=== PATIENT | female | born 1945 | race Caucasian/White ===

== ENCOUNTER 2021-02-11 08:29 | Outpatient (REF) | payer MEDICARE, SELFPAY ==
--- NOTE | 2021-02-11 16:20 | MHC.AU.P13 ---
Adult Audiological Evaluation Date of Visit: 02/11/21 Reason for Appointment: Audiological evaluation to monitor the status of Ms. Marie's hearing loss. She has a known bilateral sensorineural hearing loss and feels her hearing may be getting worse. She denies any changes to her medical history. [place] [facility] [place] Moderate sloping to profound sensorineural hearing loss bilaterally. Medical History: Medical History: Lymphedema Hearing Instrument History- Right Ear: Customs Appraiser: Phonak Model: Dream Dinners Q90-P BTE Serial Number: [id number] Battery Size: 13 Repair Warranty: 06/08/2018 Loss and Damage Warranty: 06/08/2018 Dispensed By: [facility] Date of Fittin03/19/2015 Hearing Instrument History- Left Ear: Customs Appraiser: Phonak Model: Dream Dinners Q90-P BTE Serial Number: [id number] Battery Size: 13 Warranty: 06/08/2018 Loss and Damage Warranty: 06/08/2018 Dispensed By: [facility] Date of Fittin03/19/2015 Otoscopy: Right Ear: Unremarkable Left Ear: Unremarkable Hearing Evaluation: Transducer(s) Used: Insert Earphones, Bone Conduction Method: Conventional Audiometry Stimuli Used: Pure Tones Right Ear: Description of Hearing: Moderate sloping to profound sensorineural hearing loss from 250-8000 Hz. Left Ear: Description of Hearing: Moderate sloping to profound sensorineural hearing loss from 250-8000 Hz. Speech Recognition Threshold (SRT): Method Used: Recorded Lists Stimuli Used: Spondee Words Right Ear: 50 dBHL Left Ear: 50 dBHL Word Discrimination: Method: Recorded Lists Word Lists Used: NU-6 Right Ear: 84% at 90 dBHL Left Ear: 56% at 90 dBHL, 68% at 85 dBHL Comparison: Compared to the most recent evaluation: Hearing is stable. Word discrimination scores have decreased in the left ear. Recommendations: Audiological re-evaluation in one year. Hearing aid maintenance performed today. Diagnosis: Primary Diagnosis: H90.3 Bilateral Sensorineural Hearing Loss Services Performed: Comprehensive Audiological Evaluation (CPT 18933) Signature: Provider: Michael Franz, CCC-A
== END 2021-02-11 08:30 | disposition home or self-care (01) ==
LOC: HO.SH 08:29
PROVIDERS: Visit Provider Internal Medicine
DX: H90.3 Sensorineural hearing loss, bilateral (principal)
CPT/HCPCS: 92557

== ENCOUNTER 2021-03-19 13:37 | Outpatient (REF) | payer SELFPAY | END 2021-03-19 13:38 | disposition home or self-care (01) | LOC: HO.HAP 13:37 | PROVIDERS: Visit Provider Internal Medicine | DX: Z13.89 Encounter for screening for other disorder (principal) ==

== ENCOUNTER 2021-09-26 09:07 | Outpatient (REF) | payer SELFPAY ==
--- NOTE | 2021-09-26 13:30 | MHC.AU.HFU ---
Hearing Instrument Follow-Up- Binaural Date of Visit: 09/26/21 Right Ear: Core Sucker: Phonak Model: Bolero Q90-P BTE Serial Number: [id number] Repair Warranty: 06/08/2018 Loss and Damage Warranty: 06/08/2018 Battery Size: 13 Tubing: Size 1 slim tube Type of Mold: Slim tip Dispensed By: [facility] Date of Fittin03/19/2015 Left Ear: Core Sucker: Phonak Model: Bolero Q90-P BTE Serial Number: [id number] Repair Warranty: 06/08/2018 Loss and Damage Warranty: 06/08/2018 Battery Size: 13 Tubing: Size 1 slim tip Dispensed By: [facility] Date of Fittin03/19/2015 Follow-Up Summary: Patient's right slim tip broke. For the time being, put a small power dome on the right hearing aid so she can still use it. Will order a copy of the right slim tip from [employer]. Recommendations: Recommendations: Patient will be contacted when materials have arrived. Diagnosis Code(s): Primary Diagnosis: H90.3 Bilateral Sensorineural Hearing Loss Signature: Provider: Michael Upton, BENIGNO-A
== END 2021-09-26 09:08 | disposition home or self-care (01) ==
LOC: HO.HAP 09:07
PROVIDERS: Visit Provider Internal Medicine
DX: Z13.89 Encounter for screening for other disorder (principal)

== ENCOUNTER 2021-10-10 10:38 | Outpatient (REF) | payer SELFPAY | END 2021-10-10 10:39 | disposition home or self-care (01) | LOC: HO.HAP 10:38 | PROVIDERS: Visit Provider Internal Medicine | DX: Z46.1 Encounter for fitting and adjustment of hearing aid (principal); H90.3 Sensorineural hearing loss, bilateral | CPT/HCPCS: V5264 ==

== ENCOUNTER 2022-03-03 10:26 | Outpatient (REF) | payer MEDICARE, OTHER, SELFPAY ==
--- NOTE | 2022-03-04 11:50 | MHC.AU.HAS ---
Hearing Aid Evaluation Date of Visit: 03/03/22 Historical Information: Description of Hearing: Bilateral moderate to profound sensorineural hearing loss. Current personal amplification information, if applicable: Binaural 2014 Phonak Bolero Q 90-P BTE with slim tubes and custom tips Summary: Patient recently lost her right hearing aid and wants to purchase new aids. Hearing Aid Prescription: Based on the individual?s shared listening needs, communication environments, dexterity, desire for connectivity, and personal preferences, the following prescription for amplification has been made: Right ear: Sample Puller: Phonak Model: Bolero Q90-P BTE Battery Size: 13 Color: Sand Beige Distillation Operator: #1 Power Type of Mold: Phonak canal lock c-shell Left ear: Left ear prescription to be same as Right Hearing Aid above: Sample Puller: Phonak Model: Bolero Q90-P BTE Battery Size: 13 Color: Sand Beige Distillation Operator: #1 Power Type of Mold: Phonak canal lock c-shell Plan of Care: Patient wishes to purchase hearing aids as prescribed Action Taken/Action Needed:Earmold Impressions Taken, Medical Clearance to be requested from PCP/ENT, Hearing Instrument Fitting to be scheduled when materials arrive Comments: DID NOT TAKE THE $350.00 DEPOSIT TODAY PATIENT WILL BE CHECKING IF SHE IS ABLE TO GO THROUGH HER [employer]. Patient called back after the appointment. She does not want to go to insurance providers for hearing aids and wants the aids we discussed today ordered. SHE WILL PAY 1/2 DOWN AT [facility] AND THEN SET UP PAYMENT PLAN FOR BALANCE. Schedule [facility] when aids in. Primary Diagnosis: H90.3 Bilateral Sensorineural Hearing Loss Signature:Provider: Michael Prajapati, [facility]
--- NOTE | 2022-03-04 11:52 | MHC.AU.MED ---
Medical Clearance for Hearing Instrumentation Date: 03/04/22 Patient Name: Carlitos Marie Date of : 1945 Primary Care Provider: Referring Provider: Prince Interiano MD We have seen your patient on 03/03/22 and have determined that they are a candidate for amplification (See accompanying report). Specifically, they would benefit from: Hearing aid use in both ears There is a statute that addresses Medical Evaluation Requirements prior to fitting a patient with a hearing aid. According to [place] statute 265 CMR:6.03(1), (a) General. Except as provided in 265 CMR 6.03(1)(b), a speech and hearing clinic director shall not sell a hearing aid unless the prospective user has presented to the speech and hearing clinic director a written statement signed by a licensed physician that states that the patient's hearing loss has been medically evaluated and the patient may be considered a candidate for a hearing aid. The medical evaluation must have taken place within the preceding six months. Please note: Due to the [place] Statute referenced above, we cannot accept a signature other than that of a licensed physician. RACECAR DRIVER and PA signatures cannot be accepted. I am in agreement with the above recommendation. There is no medical contraindication for hearing instrumentation. Physician Signature Date Physician Name (Printed)
--- NOTE | 2022-03-04 13:11 | MHC.AU.AHA ---
Adult Audiological Evaluation Date of Visit: 03/03/22 Balance Bridge Inspector Used: Not Applicable Reason for Appointment: Audiologic re-evaluation to determine change in hearing ability. Carlitos reports she recently lost her right hearing aid and needs replacement(s). Previous Hearing Test Results: 02/11/2021 [facility] Bilateral moderate to profound sensorineural hearing loss. Medical History: Medical History: High Blood Pressure, Lymphedema Medication List: Lisinopril, Vitamins B12 and D, Culturelle Hearing Instrument History- Right Ear: Velvet Steamer: Phonak Model: [email or web address] Q90-P BTE LOST Serial Number: [id number] Battery Size: 13 Repair Warranty: 06/08/2018 Loss and Damage Warranty: 06/08/2018 Dispensed By: [facility] Date of Fittin03/19/2015 Hearing Instrument History- Left Ear: Velvet Steamer: Phonak Model: [email or web address] Q90-P BTE Serial Number: [id number] Battery Size: 13 Warranty: 06/08/2018 Loss and Damage Warranty: 06/08/2018 Dispensed By: [facility] Date of Fittin03/19/2015 Otoscopy: Right Ear: Unremarkable Left Ear: Unremarkable Tympanometry: Not performed at today's visit as previous results have indicated normal middle ear function bilaterally. Hearing Evaluation: Transducer(s) Used: Insert Earphones Bone Conduction Method: Conventional Audiometry Stimuli Used: Pure Tones Right Ear: Description of Hearing: Moderate to moderately-severe sensorineural hearing loss 250-2000 Hz, dropping to a profound high frequency sensorineural hearing loss. Left Ear: Description of Hearing: Moderately-severe sensorineural hearing loss 250-1000 Hz, dropping to a profound high frequency sensorineural hearing loss. Speech Recognition Threshold (SRT): Method Used: Monitored Live Voice Stimuli Used: Spondee Words Right Ear: 50 dB HL Left Ear: 55 dB HL Word Discrimination: Method: Recorded Lists Word Lists Used: NU-6 Right Ear: 76% at 90 dB HL Left Ear: 80% at 90 dB HL Most Comfortable Level (MCL): Right Ear: 90 dB HL Left Ear: 90 dB HL Comparison: Compared to the most recent evaluation: Hearing is stable. Recommendations: - Trial with new binaural amplification is recommended. Carlitos's current hearing aid model is no longer manufactured, so obtaining one new hearing aid would not be compatible with the current aid. New binaural hearing aids are advised. - Medical clearance from a physician is required before fitting. - Hearing Aid Fitting will be scheduled when all materials arrive. - Left hearing aid maintenance performed today and reprogrammed with updated test results. Right loaner provided until new hearing aids are fit. - Audiological re-evaluation in one year. Will send a reminder card. Diagnosis: Primary Diagnosis: H90.3 Bilateral Sensorineural Hearing Loss Services Performed: Comprehensive Audiological Evaluation (CPT 13073) Signature: Provider: iMchael Prajapati, CCC-A
== END 2022-03-03 10:27 | disposition home or self-care (01) ==
LOC: HO.SH 10:26
PROVIDERS: Visit Provider Internal Medicine
DX: Z01.118 Encounter for examination of ears and hearing with other abnormal findings (principal); H90.3 Sensorineural hearing loss, bilateral
CPT/HCPCS: 92557

== ENCOUNTER 2022-03-23 09:20 | Outpatient (REF) | payer SELFPAY | END 2022-03-23 09:21 | disposition home or self-care (01) | LOC: HO.HAP 09:20 | PROVIDERS: Visit Provider Internal Medicine | DX: Z46.1 Encounter for fitting and adjustment of hearing aid (principal); H90.3 Sensorineural hearing loss, bilateral | CPT/HCPCS: V5261 ==

== ENCOUNTER 2022-04-07 12:23 | Outpatient (REF) | payer SELFPAY ==
--- NOTE | 2022-04-07 13:29 | MHC.AU.HFU ---
Hearing Instrument Follow-Up- Binaural Date of Visit: 04/07/22 Right Ear: Collet Driller: Phonak Model: Audeo P 90-13T Serial Number: [id number] Repair Warranty: 06/07/2025 Loss and Damage Warranty: 06/07/2025 Battery Size: 13 Color: Sand Beige Database Technician: #1 Power Type of Mold: Phonak canal lock c-shell #2214AERM warranty 07/08/2022 Type of Wax Guard: CeruStop Dispensed By: [facility] Date of Fittin03/23/2022 Left Ear: Collet Driller: Phonak Model: Audeo P 90-13T Serial Number: [id number] Repair Warranty: 06/07/2025 Loss and Damage Warranty: 06/07/2025 Battery Size: 13 Color: Sand Beige Database Technician: #1 Power Type of Mold: Phonak canal lock c-shell #2214AERL warranty 07/08/2022 Type of Wax Guard: CeruStop Dispensed By: [facility] Date of Fittin03/23/2022 Follow-Up Summary: 2 week follow-up. Patient reports up until a few days ago, she was doing very well with the hearing aids. Hearing well, comfortable, and able to use the cell phone. Then suddenly the right aid stopped working. Patient thought the aids only worked when used as a pair so stopped wearing the left one as well. Right aid , replaced battery (reminding patient to wait a full 2 minutes after removing the tab to place in aid) and the aid is now working well. Also replaced the left battery today. Patient was able to download the [employer] Lina. Paired with aids and practiced use. Patient wants to keep the aids and plans to set up payment plan when bill is received. Recommendations: Hearing instrument follow-up or maintenance as needed. Please contact our clinic with any questions or concerns. Diagnosis Code(s): Primary Diagnosis: H90.3 Bilateral Sensorineural Hearing Loss Signature:Provider: Aris Prajapati, [facility]
== END 2022-04-07 12:24 | disposition home or self-care (01) ==
LOC: HO.HAP 12:23
PROVIDERS: Visit Provider Internal Medicine
DX: Z13.89 Encounter for screening for other disorder (principal)

== ENCOUNTER 2023-11-02 14:38 | Outpatient (REF) | payer SELFPAY ==
--- NOTE | 2023-11-02 16:04 | MHC.AU.HA3 ---
Hearing Instrument Follow-Up- Binaural Date of Visit: 11/02/23 Right Ear: Deep, Model, Color, Serial Number: Henry Pots P90-13T SN: [id number] Color: Sand Beige Oil Producer Repair Warranty: 06/07/2025 Oil Producer Loss and Damage Warranty: 06/07/2025 Battery Size: 13 Foam Machine Operator/Slim Tube: #1 Power Earmold/Dome/CShell/SlimTip:Phonak canal lock c-shell #2214AERM warranty 07/08/2022 Type of Wax Guard: CeruStop Dispensed By: [facility] Date of Fittin03/23/2022 Left Ear: Deep, Model, Color, Serial Number: Henry Post P90-13T SN: [id number] Color: Sand Beige Oil Producer Repair Warranty: 06/07/2025 Oil Producer Loss and Damage Warranty: 06/07/2025 Battery Size: 13 Foam Machine Operator/Slim Tube: #1 Power Earmold/Dome/CShell/SlimTip: Phonak canal lock c-shell #2214AERL warranty 07/08/2022 Type of Wax Guard: CeruStop Dispensed By: [facility] Date of Fittin03/23/2022 Follow-Up Summary: Carlitos reported that she is having intermittent bluetooth issues. She reported that during phone calls, the conversation will cut out. The other person will also report intermittent difficulty hearing her voice. No intermittent issues reported with hearing aids themselves - only on phone calls. Cleaned hearing aids and ear molds. Vacuumed microphones and replaced wax guards. A listening check demonstrated the hearing aids are amplifying clearly. No firmware updates available. Changed bluetooth signal from adaptive to fixed for more consistent connection; however, sound quality may be slightly affected. Carlitos also reported she has an older cellphone and it may be time to upgrade her cell phone as well. Discussed option to send hearing aids for in-warranty neighborhood planner repair; although unsure if it would resolve bluetooth issue. Carlitos reported she will try again with fixed bluetooth signal and look into upgrading her cellphone first. Recommendations: Hearing instrument follow-up or maintenance as needed. Please contact our clinic with any questions or concerns. Patient will call if problems persist. Diagnosis Code(s): Primary Diagnosis: H90.3 Bilateral Sensorineural Hearing Loss Signature: Provider: Poonam Heath, BENIG[facility]-A
== END 2023-11-02 14:39 | disposition home or self-care (01) ==
LOC: HO.HAP 14:38
PROVIDERS: Visit Provider Internal Medicine
DX: Z13.89 Encounter for screening for other disorder (principal)

== ENCOUNTER 2023-12-23 14:08 | Outpatient (REF) | payer SELFPAY ==
--- NOTE | 2023-12-23 15:37 | MHC.AU.HA3 ---
Hearing Instrument Follow-Up- Binaural Date of Visit: 12/23/23 Right Ear: Deep, Model, Color, Serial Number: Henry Post P90-13T SN: [id number] Color: Sand Beige Automotive Accessory Installer Repair Warranty: 06/07/2025 Automotive Accessory Installer Loss and Damage Warranty: 06/07/2025 Battery Size: 13 Concrete Pipe Maker/Slim Tube: #1 Power Earmold/Dome/CShell/SlimTip:Phonak canal lock c-shell #2214AERM warranty 07/08/2022 Type of Wax Guard: CeruStop Dispensed By: [facility] Date of Fittin03/23/2022 Left Ear: Deep, Model, Color, Serial Number: Henry Post P90-13T SN: [id number] Color: Sand Beige Automotive Accessory Installer Repair Warranty: 06/07/2025 Automotive Accessory Installer Loss and Damage Warranty: 06/07/2025 Battery Size: 13 Concrete Pipe Maker/Slim Tube: #1 Power Earmold/Dome/CShell/SlimTip: Phonak canal lock c-shell #2214AERL warranty 07/08/2022 Type of Wax Guard: CeruStop Dispensed By: [facility] Date of Fittin03/23/2022 Follow-Up Summary: Carlitos recently dropped her right hearing aid and the canal lock portion of her c-shell broke off. She has only been able to wear it intermittently due to the sharpness of the broken area. Buffed until smooth. Carlitos noticed immediate improvement in comfort. Also discussed option of purchasing new c-shell with canal lock. Quoted $185.00. She also reported the right wire seems too long as it does not hug her ear as snuggly as the left ear. This has reportedly always been an issues but she has just dealt with it. Advised that hearing aid/c-shell can be sent to [email or web address] to replace with shorter wire or can order new c-shell with shorter wire. Carlitos will try to wear as is for now and will call if problems with comfort or retention arise. Reran feedback analyzer as Carlitos reported an increase in feedback recently. No feedback noted in office. No cerumen, bilaterally. Carlitos reported she also is not hearing as well. Discussed updated hearing test - Carlitos will request doctor's order from PCP. Recommendations: Hearing instrument follow-up or maintenance as needed. Please contact our clinic with any questions or concerns. Diagnosis Code(s): Primary Diagnosis: H90.3 Bilateral Sensorineural Hearing Loss Signature: Provider: Poonam Heath, [facility]
== END 2023-12-23 14:09 | disposition home or self-care (01) ==
LOC: HO.HAP 14:08
PROVIDERS: Visit Provider Internal Medicine
DX: Z13.89 Encounter for screening for other disorder (principal)

== ENCOUNTER 2024-02-18 14:56 | Outpatient (REF) | payer SELFPAY | END 2024-02-18 14:57 | disposition home or self-care (01) | LOC: HO.HAP 14:56 | PROVIDERS: Visit Provider Internal Medicine | DX: Z13.89 Encounter for screening for other disorder (principal) ==